=== PATIENT | male | born 1990 | race African-American/Black ===

== ENCOUNTER 2016-06-18 22:10 | Emergency (ER) | payer BC ==
[~2016-06-18] VITALS: Ht 180.3 cm; Wt 80.7 kg
[~2016-06-18 22:10] MED LIST: ERYTHROMYC1 APPLICAT LEFT EYE; NAPROSYN500 MG PO; NAPROXEN500 MG PO
[2016-06-19] MEDS ORDERED: BACTRIM,SEPT1 TABLET PO (00:30)
[2016-06-19] MEDS ORDERED: CEPHALEXIN500 MG PO (00:41)
[2016-06-19] MEDS ORDERED: DOXYCYCLINE HY100 MG PO (00:41)
[2016-06-19 00:56] VITALS: BP 137/81
== END 2016-06-19 00:56 | disposition home or self-care (01) ==
LOC: EME 22:10
PROC: 0H99XZZ Drainage of Perineum Skin, External Approach (ICD-10-PCS; principal; 2016-06-19)
DX: L02.215 Cutaneous abscess of perineum (principal); F17.200 Nicotine dependence, unspecified, uncomplicated
CPT/HCPCS: 99281; 99283